=== PATIENT | male | born 1935 | race Two or more races ===

== ENCOUNTER 2018-01-28 11:29 | Inpatient (IN) | payer MEDICARE, MEDICAID ==
[2018-01-28] MEDS ORDERED: Sodium Chloride 0.9% 1,000 ML IV STA (12:05)
--- NOTE | 2018-01-28 12:38 | ED PDOC ---
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 Patient reports he is currently seeing a surgeon at [facility] and has not seen oncology in approximately 1 year. Patient had a CT at [facility] on 11/26 which showed extensive metastasis to the liver and pulmonary nodules. Patient presents today with worsening abdominal pain, diarrhea, loss of appetite , and nausea. Patient reports taking Oxycodone at home with minimal relief. He states he last saw his surgeon earlier this month. Patient was planned for a diverting colostomy, however the patient reports deciding to avoid surgery given it was not curative. Patent recently had a pacemaker and cardiac stents placed at [facility]. PMD: Dr. Márquez Past Medical History Reviewed: Historical Data, Nursing Documentation, Vital Signs Vital Signs: Last Vital Signs Temp 97.8 F 01/28/18 11:31 Pulse 92 H 01/28/18 11:31 Resp 19 01/28/18 11:31 BP 103/64 01/28/18 11:31 Pulse Ox 96 01/28/18 12:46 - Medical History Other PMH: Rectal cancer (mets to liver, abdomen, lungs) - Surgical History Surgical History: Pacemaker - Family History Family History: States: Unknown Family Hx - Social History Current smoker - smoking cessation education provided: No Alcohol: None Drugs: Denies - Allergies Allergies/Adverse Reactions: Allergies Allergy/AdvReac Type Severity Reaction Status Date / Time tramadol AdvReac DIZZINESS Verified 01/28/18 12:06 Review of Systems ROS Statement: Except As Marked, All Systems Reviewed And Found Negative Constitutional: Positive for: Weakness, Weight loss Gastrointestinal: Positive for: Nausea, Vomiting, Abdominal Pain, Diarrhea Neurological: Positive for: Dizziness Physical Exam - Reviewed Nursing Documentation Reviewed: Yes Vital Signs Reviewed: Yes - Physical Exam Appears: Positive for: No Acute Distress (chronically ill appearing, malnourished) Head Exam: Positive for: ATRAUMATIC, NORMAL INSPECTION, NORMOCEPHALIC Skin: Positive for: Normal Color, Warm, Dry Eye Exam: Positive for: EOMI, Normal appearance, PERRL ENT: Positive for: Normal ENT Inspection Neck: Positive for: Normal, Painless ROM, Supple Cardiovascular/Chest: Positive for: Other (pacemaker in left chest wall) Respiratory: Positive for: Normal Breath Sounds. Negative for: Respiratory Distress Gastrointestinal/Abdominal: Positive for: Tenderness (diffuse), Distended ( slight) Back: Positive for: Normal Inspection. Negative for: L CVA Tenderness, R CVA Tenderness, Vertebral Tenderness Extremity: Positive for: Normal ROM Neurologic/Psych: Positive for: Alert, Oriented - Laboratory Results Result Diagrams: 01/28/18 12:30 01/28/18 12:30 - ECG O2 Sat by Pulse Oximetry: 96 (RA) Pulse Ox Interpretation: Normal Medical Decision Making Medical Decision Making: Plan: -Workup for abdominal progression of disease/perforation/obstruction/other -Will give pain medicine, IV fluids, and order CT abdomen pelvis. labs reveal dehydration, normal Hgb CT revealed no obstruction, +metastatic disease D/w PMD Dr Márquez rec admission may benefit from AFIA Further pain medicine ordered IVF continued Dr Spence hospitalist admitting for Dr Yulisa Grimmibld Attestation: Documented by Esa Whittington, acting as a scribe for Brian Cuellar III, DO. Provider Scribe Attestation: All medical record entries made by the Scribe were at my direction and personally dictated by me. I have reviewed the chart and agree that the record accurately reflects my personal performance of the history, physical exam, medical decision making, and the department course for this patient. I have also personally directed, reviewed, and agree with the discharge instructions and disposition. Disposition - Clinical Impression Clinical Impression: Abdominal pain, Metastatic disease - Patient ED Disposition Is Patient to be Admitted: Yes - Disposition Disposition Time: 14:30 Condition: FAIR - Pt Status Changed To: Hospital Disposition Of: Inpatient - Admit Certification Admit to Inpatient:: After my assessment, the patient will require hospitalization for at least two midnights. This is because of the severity of symptoms shown, intensity of services needed, and/or the medical risk in this patient being treated as an outpatient. - POA Present On Arrival: None
[2018-01-28 12:52] LABS: BASO % 0.4 % (0.0-2.0); EOS # 0.1 K/uL (0.0-0.7); HEMOGLOBIN 12.3 g/dL (12.0-18.0); LYMPH # 0.3 K/uL (1.0-4.3); LYMPH % 2.5 % (20.0-40.0); MEAN CELL VOLUME 91.9 fl (80.0-94.0); MEAN CORPUSCULAR HEMOGLOBIN 30.5 pg (27.0-31.0); MEAN CORPUSCULAR HGB CONC 33.2 g/dL (33.0-37.0); MEAN PLATELET VOLUME 7.5 fl (7.2-11.7); MONO # 0.7 K/uL (0.0-0.8); MONO % 6.1 % (0.0-10.0); NEUT # 9.8 K/uL (1.8-7.0); NRBC % 0.1 % (0.0-0.0); PLATELET COUNT 314 K/uL (130-400); RBC 4.04 Mil/uL (4.40-5.90); RED CELL DISTRIBUTION WIDTH 15.9 % (11.5-14.5); WHITE BLOOD COUNT 10.9 K/uL (4.8-10.8)
[2018-01-28 13:02] LABS: INR 1.1 (0.9-1.2); PROTHROMBIN TIME 12.7 Seconds (9.8-13.1)
[2018-01-28 13:03] LABS: PARTIAL THROMBOPLASTIN TIME 29.1 Seconds (25.6-37.1)
--- NOTE | 2018-01-28 13:16 | RAD ---
HISTORY: SOB COMPARISON: No prior. FINDINGS: LUNGS: Prominence of the bilateral interstitial markings, likely chronic, with peripheral fibrotic changes. PLEURA: Elevation of the right hemidiaphragm. No significant pleural effusion identified, no pneumothorax apparent. CARDIOVASCULAR: Left subclavian access dual lead pacemaker. Atherosclerotic aortic calcifications. Cardiomediastinal silhouette enlarged. OSSEOUS STRUCTURES: Questionable right lateral 5th rib fracture. Degenerative changes. VISUALIZED UPPER ABDOMEN: Normal. OTHER FINDINGS: None. IMPRESSION: Prominence of the bilateral interstitial markings, likely chronic, with peripheral fibrotic changes. Superimposed consolidation would be difficult to exclude. Questionable right lateral 5th rib fracture.
[2018-01-28 13:25] LABS: ANISOCYTOSIS SLIGHT; BANDS 1 % (0-2); EOSINOPHIL 1 % (0-7); LYMPHOCYTE 6 % (20-50); MONOCYTE 5 % (0-10); NEUTROPHIL 87 % (42-75); PLATELET ESTIMATE NORMAL (NORMAL); TOTAL CELLS COUNTED 100
[2018-01-28 13:26] LABS: OVALOCYTES SLIGHT; SCHISTOCYTES SLIGHT; TOXIC GRANULATION PRESENT
[2018-01-28 13:31] LABS: BLOOD UREA NITROGEN 30 mg/dl (9-20); CALCIUM 8.7 mg/dL (8.4-10.2); GFR AFRICAN-AMERICAN > 60; GFR NON-AFRICAN AMERICAN > 60
[2018-01-28 13:32] LABS: ALBUMIN 3.7 g/dL (3.5-5.0); ALT/SGPT 66 U/L (21-72); AST/SGOT 143 U/L (17-59); LIPASE 64 U/L (23-300)
[2018-01-28] MEDS ORDERED: Iohexol 300 100 ML IJ ONE (14:33)
[2018-01-28] MEDS ORDERED: Sodium Chloride 0.9% 50 ML IV ONE (14:33)
--- NOTE | 2018-01-28 16:32 | CT ---
PROCEDURE: CT Abdomen and Pelvis with contrast HISTORY: hx rectal cancer w mets now worse abd pain COMPARISON: None. TECHNIQUE: Contrast dose: 90 mL Omnipaque 300 Radiation dose: Total exam DLP = 593.4 MGy-cm. This CT exam was performed using one or more of the following dose reduction techniques: Automated exposure control, adjustment of the mA and/or kV according to patient size, and/or use of iterative reconstruction technique. FINDINGS: LOWER THORAX: Bibasilar atelectasis/ scarring with peripheral fibrotic changes. Anterior right upper lobe 1 cm nodule (series 3, image 3). Cardiomegaly. Partially imaged implanted cardiac device leads. LIVER: Multiple low-density hepatic masses, scattered hepatic lobe and occupying nearly the entire left hepatic lobe. No gross lesion or ductal dilatation. GALLBLADDER AND BILE DUCTS: Unremarkable. PANCREAS: Unremarkable. No gross lesion or ductal dilatation. SPLEEN: Unremarkable. ADRENALS: Unremarkable. No mass. KIDNEYS AND URETERS: Unremarkable. No hydronephrosis. No solid mass. VASCULATURE: Unremarkable. No aortic aneurysm. BOWEL: Irregular long segment thickening of the rectum. Extensive amount retained colonic stool. No obstruction. No gross mural thickening. APPENDIX: Normal appendix. PERITONEUM: Hazy change within the mesentery and omentum. Trace perihepatic and perisplenic ascites. No free air. LYMPH NODES: Unremarkable. No enlarged lymph nodes. BLADDER: Unremarkable. REPRODUCTIVE: Unremarkable. BONES: Age-indeterminate compression deformities of T12 and L5. OTHER FINDINGS: None. IMPRESSION: No acute abdominal pelvic pathology. Long segment irregular rectal wall thickening. Innumerable low-density hepatic metastases, occupying nearly the entire left hepatic lobe and scattered throughout much of the right hepatic lobe. 1.1 cm right lower lobe nodule. Age-indeterminate compression deformities of T12 and L5.
[2018-01-28] MEDS ORDERED: Albuterol HFA 90 mcg/actuation (8 g) IH PRN (18:29)
--- NOTE | 2018-01-28 18:35 | CP.PCM.HP ---
History of Present Illness - History of Present Illness History of Present Illness: CC: Abdominal pain This is an 82 yo male with pmh of rectal carcinoma with metastatic disease to abdomen, liver, and lung, who presented to the ED today c/o generalized severe abdominal pain. He was recently evaluated by a surgeon at [facility] for possible tumor removal, however he was not cleared by the score caller as he reportedly had EF of 10%. He recently had cardiac stent placement as well as a pacemaker, however he was still not cleared. Patient had a CT at [facility] on 01/12/18 which showed extensive metastasis to the liver and pulmonary nodules. Today the patient presented to the ED with worsening abdominal pain, diarrhea, loss of appetite, and nausea. CT scan here shows a long segment irregular rectal wall thickening, also with low-density hepatic metastases, occupying nearly the entire left hepatic lobe and scattered throughout much of the right hepatic lobe. The patient is being admitted for pain management. After discussion about code status, the patient wishes to be DNR/DNI and is open to hospice care. Patient denies chest pain, shortness of breath, headache. All of the patient's and/or family's questions were answered at the bedside. Present on Admission - Present on Admission Any Indicators Present on Admission: No Review of Systems - Review of Systems Review of Systems: A 12 point review of systems was conducted and found to be negative other than what was mentioned in the HPI. Past Patient History - Infectious Disease Hx of Infectious Diseases: None - Past Medical History & Family History Past Medical History?: Yes Past Family History: Reviewed and not pertinent - Past Social History Alcohol: None Drugs: Denies Home Situation {Lives}: With Family - CARDIAC Hx Cardiac Disorders: Yes Hx Congestive Heart Failure: Yes Hx Hypercholesterolemia: Yes Hx Pacemaker: Yes - HEMATOLOGICAL/ONCOLOGICAL Hx Cancer: Yes (prostate and rectal) - GENITOURINARY/GYNECOLOGICAL Hx Prostate Cancer: Yes - PSYCHIATRIC Hx Substance Use: No - ANESTHESIA Hx Anesthesia: Yes Meds Allergies/Adverse Reactions: Allergies Allergy/AdvReac Type Severity Reaction Status Date / Time tramadol AdvReac DIZZINESS Verified 01/28/18 12:06 Physical Exam - Additional Findings Additional findings: Physical exam: Constitutional- cooperative, awake, alert, cachectic male in no apparent distress Head- NCAT, PERRL Eye- PERRL, EOMI ENT- normal exam, MMM. Neck- normal inspection, supple, no JVD Respiratory- CTAB, scattered rhonchi, no rales Cardiovascular- RRR, +S1, +S2 no MRG GI/Abdominal- normal bowel sounds, soft, no mass, no hsm Skin- warm, dry Extremities Exam- normal capillary refill, normal inspection Neurological Exam- alert, awake, oriented Psych- normal mood, normal affect Results - Vital Signs Recent Vital Signs: Last Vital Signs Temp 97.8 F 01/28/18 11:31 Pulse 92 H 01/28/18 11:31 Resp 19 01/28/18 11:31 BP 103/64 01/28/18 11:31 Pulse Ox 96 01/28/18 18:20 - Labs Result Diagrams: 01/28/18 12:30 01/28/18 12:30 Labs: Laboratory Results - last 24 hr 01/28/18 01/28/18 01/28/18 12:25 12:30 12:30 WBC 10.9 H RBC 4.04 L Hgb 12.3 Hct 37.1 MCV 91.9 MCH 30.5 MCHC 33.2 RDW 15.9 H Plt Count 314 MPV 7.5 Neut % (Auto) 90.0 H Lymph % (Auto) 2.5 L [place] % (Auto) 6.1 Eos % (Auto) 1.0 Baso % (Auto) 0.4 Neut # (Auto) 9.8 H Lymph # (Auto) 0.3 L [place] # (Auto) 0.7 Eos # (Auto) 0.1 Baso # (Auto) 0.0 Neutrophils % (Manual) 87 H Band Neutrophils % 1 Lymphocytes % (Manual) 6 L Monocytes % (Manual) 5 Eosinophils % (Manual) 1 Toxic Granulation Present Platelet Estimate Normal Anisocytosis (manual) Slight Ovalocytes Slight Schistocytes Slight PT INR APTT Sodium 131 L Potassium 4.8 Chloride 95 L Carbon Dioxide 28 Anion Gap 13 BUN 30 H Creatinine 1.1 Est GFR ( Amer) > 60 Est GFR (Non-Af Amer) > 60 POC Glucose (mg/dL) 127 H Random Glucose 125 H Calcium 8.7 Total Bilirubin 1.1 AST 143 H ALT 66 Alkaline Phosphatase 239 H Total Protein 7.4 Albumin 3.7 Globulin 4.0 H Albumin/Globulin Ratio 1.0 Lipase 64 01/28/18 12:30 WBC RBC Hgb Hct MCV MCH MCHC RDW Plt Count MPV Neut % (Auto) Lymph % (Auto) [place] % (Auto) Eos % (Auto) Baso % (Auto) Neut # (Auto) Lymph # (Auto) [place] # (Auto) Eos # (Auto) Baso # (Auto) Neutrophils % (Manual) Band Neutrophils % Lymphocytes % (Manual) Monocytes % (Manual) Eosinophils % (Manual) Toxic Granulation Platelet Estimate Anisocytosis (manual) Ovalocytes Schistocytes PT 12.7 INR 1.1 APTT 29.1 Sodium Potassium Chloride Carbon Dioxide Anion Gap BUN Creatinine Est GFR ( Amer) Est GFR (Non-Af Amer) POC Glucose (mg/dL) Random Glucose Calcium Total Bilirubin AST ALT Alkaline Phosphatase Total Protein Albumin Globulin Albumin/Globulin Ratio Lipase Assessment & Plan - Assessment and Plan (Free Text) Plan: ASSESSMENT/PLAN This is an 82 yo male with pmh of rectal carcinoma with metastatic disease to abdomen, liver, and lung, who presented to the ED today c/o generalized severe abdominal pain. He was recently evaluated by a surgeon at [facility] for possible tumor removal, however he was not cleared by the score caller as he reportedly had EF of 10%. He recently had cardiac stent placement as well as a pacemaker, however he was still not cleared. Patient had a CT at [facility] on 01/12/18 which showed extensive metastasis to the liver and pulmonary nodules. Today the patient presented to the ED with worsening abdominal pain, diarrhea, loss of appetite, and nausea. CT scan here shows a long segment irregular rectal wall thickening, also with low-density hepatic metastases, occupying nearly the entire left hepatic lobe and scattered throughout much of the right hepatic lobe. The patient is being admitted for pain management. After discussion about code status, the patient wishes to be DNR/DNI and is open to hospice care. 1) Rectal cancer with mets to abdomen, liver, and lung, with large tumor burden and acute abdominal pain - Admit to med/surg - Morphine sliding scale for pain - Case management consultation regarding dispo/hospice planning as patient would likely qualify. - HD stable for med/surg - Made DNR/DNI as per patients wish - Patient is Jehovah witness and refuses any blood products to be transfused. 2) Failue to thrive due to metastatic disease - IV NS at 200 cc/hour for rehydration - regular diet - dietary consultation 3) Hypothyroidism - Continue Synthroid 4) Systolic chronic CHF with EF 10% as per history - Continue Aldactone 5) DVT prophylaxis - Heparin SQ
[2018-01-28] MEDS ORDERED: Oxycodone/Acetaminophen 5/325 mg Tab PO PRN (18:36)
[2018-01-28] MEDS ORDERED: Sodium Chloride 0.9% 1,000 ML IV SCH ×2 (18:45→19:00)
[2018-01-28] MEDS: oxyCODONE 10 mg ER Tab (oxyCONTIN) PO SCH (21:23)
[2018-01-29 06:37] LABS: HEMOGLOBIN 11.1 g/dL (12.0-18.0); MEAN CELL VOLUME 92.4 fl (80.0-94.0); MEAN CORPUSCULAR HEMOGLOBIN 30.8 pg (27.0-31.0); MEAN CORPUSCULAR HGB CONC 33.4 g/dL (33.0-37.0); RBC 3.59 Mil/uL (4.40-5.90); RED CELL DISTRIBUTION WIDTH 15.9 % (11.5-14.5); WHITE BLOOD COUNT 8.9 K/uL (4.8-10.8)
[2018-01-29 07:04] LABS: BLOOD UREA NITROGEN 26 mg/dl (9-20); CALCIUM 8.3 mg/dL (8.4-10.2); GFR AFRICAN-AMERICAN > 60; GFR NON-AFRICAN AMERICAN > 60
--- NOTE | 2018-01-29 08:17 | CARD ---
APPROVED REPORT EKG Measurement Heart [id number] <Conclusion> Atrial-sensed ventricular-paced rhythm Abnormal ECG
[2018-01-29] MEDS ORDERED: Patient's Own Med (Umeclidinium Brm/Vilanterol Tr [Anoro Ellipta 62.5-25 Mcg Inh] 1 PUFF) IH SCH (09:00)
[2018-01-29] MEDS ORDERED: Sod Polystyrene Sulf 15 gm/60 ml Susp PO ONE ×3 (09:41→18:00)
[2018-01-29] MEDS: Cholecalciferol 1,000 INTLU TAB PO SCH (10:13)
[2018-01-29] MEDS: oxyCODONE 10 mg ER Tab (oxyCONTIN) PO SCH (10:19)
[2018-01-29] MEDS: Levothyroxine 25 MCG TAB PO SCH (10:30)
--- NOTE | 2018-01-29 11:31 | CP.PCM.PN ---
Subjective - Date & Time of Evaluation Date of Evaluation: 01/29/18 Time of Evaluation: 11:00 - Subjective Subjective: Patient was seen and examined at bedside. He reports continued abdominal pain but it is somewhat improved with the adjusted pain regimen. Having good BM and eating and drinking some. No other new complaints. For hospice evaluation today. Objective - Vital Signs/Intake and Output Vital Signs (last 24 hours): Temp Pulse Resp BP Pulse Ox 979.4 F H 68 20 90/61 L 98 01/29/18 08:11 01/29/18 08:11 01/29/18 08:11 01/29/18 08:11 01/29/18 08:11 - Medications Medications: Current Medications Albuterol (Ventolin Hfa 90 Mcg/Actuation (8 G)) 2 puff IH Q6 PRN PRN Reason: Shortness of Breath Cholecalciferol (Vitamin D) 1,000 intlu PO DAILY [facility] Last Admin: 01/29/18 10:13 Dose: 1,000 intlu Cyanocobalamin (Vitamin B12 1000 Mcg Tab) 1,000 mcg PO DAILY [facility] Last Admin: 01/29/18 10:13 Dose: 1,000 mcg Docusate Sodium (Colace) 100 mg PO BID [facility] Last Admin: 01/29/18 10:08 Dose: 100 mg Fentanyl (Duragesic) 1 patch TD Q3D [facility]IDNEY PRN Reason: Protocol Last Admin: 01/28/18 19:30 Dose: 1 patch Heparin Sodium (Porcine) (Heparin) 5,000 units SC Q8 SIDNEY PRN Reason: Protocol Last Admin: 01/29/18 10:08 Dose: 5,000 units Home Med (Umeclidinium Brm/Vilanterol Tr [Anoro Ellipta 62.5-25 Mcg Inh]) 1 puff IH DAILY [facility] Sodium Chloride (Sodium Chloride 0.9%) 1,000 mls @ 70 mls/hr IV .[id number] [facility] Stop: 01/29/18 18:45 Last Admin: 01/29/18 10:10 Dose: Not Given Levothyroxine Sodium (Synthroid) 37.5 mcg PO DAILY [facility] Last Admin: 01/29/18 10:30 Dose: 37.5 mcg Morphine Sulfate (Morphine) 4 mg IVP Q4 PRN PRN Reason: Pain, severe (8-10) Ondansetron HCl (Zofran Inj) 4 mg IVP Q6 PRN PRN Reason: Nausea/Vomiting Oxycodone HCl (Oxycontin Extended Release Tab) 10 mg PO Q12 [facility] Stop: 01/31/18 21:01 Last Admin: 01/29/18 10:19 Dose: 10 mg Oxycodone/Acetaminophen (Percocet 5/325 Mg Tab) 1 tab PO Q4 PRN PRN Reason: Pain, moderate (4-7) Stop: 01/31/18 18:37 Last Admin: 01/29/18 01:54 Dose: 1 tab Tamsulosin HCl (Flomax) 0.4 mg PO HS [facility] Last Admin: 01/28/18 21:27 Dose: 0.4 mg Zinc Sulfate (Zinc Sulfate 220 Mg Cap) 220 mg PO DAILY [facility] Last Admin: 01/29/18 10:13 Dose: 220 mg - Labs Labs: 01/29/18 06:20 01/29/18 06:20 PT 12.7 Seconds (9.8-13.1) 01/28/18 12:30 INR 1.1 (0.9-1.2) 01/28/18 12:30 APTT 29.1 Seconds (25.6-37.1) 01/28/18 12:30 - Additional Findings Additional findings: Physical exam: Constitutional- [place] speaking male, cooperative, awake, alert, cachectic male in no apparent distress Head- NCAT, PERRL Eye- PERRL, EOMI ENT- normal exam, MMM. Neck- normal inspection, supple, no JVD Respiratory- CTAB, scattered rhonchi, no rales Cardiovascular- RRR, +S1, +S2 no MRG GI/Abdominal- Generalized abdominal tenderness. normal bowel sounds, soft, no mass, no hsm Skin- warm, dry Extremities Exam- normal capillary refill, normal inspection Neurological Exam- alert, awake, oriented Psych- normal mood, normal affect Assessment and Plan - Assessment and Plan (Free Text) Plan: ASSESSMENT/PLAN This is an 82 yo male with pmh of rectal carcinoma with metastatic disease to abdomen, liver, and lung, who presented to the ED today c/o generalized severe abdominal pain. He was recently evaluated by a surgeon at [facility] for possible tumor removal, however he was not cleared by the tennis coach as he reportedly had EF of 10%. He recently had cardiac stent placement as well as a pacemaker, however he was still not cleared. Patient had a CT at [facility] on 01/12/18 which showed extensive metastasis to the liver and pulmonary nodules. Today the patient presented to the ED with worsening abdominal pain, diarrhea, loss of appetite, and nausea. CT scan here shows a long segment irregular rectal wall thickening, also with low-density hepatic metastases, occupying nearly the entire left hepatic lobe and scattered throughout much of the right hepatic lobe. The patient is being admitted for pain management. After discussion about code status, the patient wishes to be DNR/DNI and is open to hospice care. 1) Rectal cancer with mets to abdomen, liver, and lung, with large tumor burden and acute abdominal pain - Admit to med/surg - Fentanyl patch - Oxycontin 10 mg po q 12 hours - Percocet 1 tab q 4 hours PRN for additional pain control - Hospice evaluation today - HD stable for med/surg - Made DNR/DNI as per patients wish - Patient is Jehovah witness and refuses any blood products to be transfused. 2) Failue to thrive due to metastatic disease - NS reduced to 70 cc/hour for continued hydration - regular diet- tolerating well - dietary consultation 3) Hypothyroidism - Continue Synthroid 4) Systolic chronic CHF with EF 10% as per history - chronic - monitor 5) Hypokalemia - Kayexelate given - Hold Spironolactone for now, can restart when potassium reduced 6) DVT prophylaxis - Heparin SQ
[2018-01-29] MEDS ORDERED: oxyCODONE 10 mg ER Tab (oxyCONTIN) PO SCH (17:00)
[2018-01-29] MEDS: Oxycodone/Acetaminophen 5/325 mg Tab PO PRN (19:52)
[2018-01-30 07:01] LABS: HEMOGLOBIN 11.6 g/dL (12.0-18.0); MEAN CELL VOLUME 92.4 fl (80.0-94.0); MEAN CORPUSCULAR HGB CONC 33.6 g/dL (33.0-37.0); RBC 3.74 Mil/uL (4.40-5.90); WHITE BLOOD COUNT 10.6 K/uL (4.8-10.8)
[2018-01-30 07:04] LABS: BLOOD UREA NITROGEN 23 mg/dl (9-20); CALCIUM 8.1 mg/dL (8.4-10.2); GFR AFRICAN-AMERICAN > 60; GFR NON-AFRICAN AMERICAN > 60
[2018-01-30] MEDS: Oxycodone/Acetaminophen 5/325 mg Tab PO PRN (09:50)
[2018-01-30] MEDS: Levothyroxine 25 MCG TAB PO SCH (09:51)
[2018-01-30] MEDS: Cholecalciferol 1,000 INTLU TAB PO SCH (09:52)
--- NOTE | 2018-01-30 11:16 | CP.PCM.PN ---
Subjective - Date & Time of Evaluation Date of Evaluation: 01/30/18 Time of Evaluation: 11:00 - Subjective Subjective: Patient was seen and examined at bedside today. Reports feeling much better with the adjusted pain regimen. at bedside. For PT eval today and likely discharge to [facility] tomorrow. Objective - Vital Signs/Intake and Output Vital Signs (last 24 hours): Temp Pulse Resp BP Pulse Ox 98.1 F 96 H 18 123/67 92 L 01/30/18 07:48 01/30/18 07:48 01/30/18 07:48 01/30/18 07:48 01/30/18 07:48 - Medications Medications: Current Medications Albuterol (Ventolin Hfa 90 Mcg/Actuation (8 G)) 2 puff IH Q6 PRN PRN Reason: Shortness of Breath Cholecalciferol (Vitamin D) 1,000 intlu PO DAILY [facility] Last Admin: 01/30/18 09:52 Dose: 1,000 intlu Cyanocobalamin (Vitamin B12 1000 Mcg Tab) 1,000 mcg PO DAILY [facility] Last Admin: 01/30/18 09:52 Dose: 1,000 mcg Docusate Sodium (Colace) 100 mg PO BID [facility] Last Admin: 01/30/18 09:50 Dose: 100 mg Fentanyl (Duragesic) 1 patch TD Q3D [facility] PRN Reason: Protocol Last Admin: 01/28/18 19:30 Dose: 1 patch Heparin Sodium (Porcine) (Heparin) 5,000 units SC Q8 [facility] PRN Reason: Protocol Last Admin: 01/30/18 09:50 Dose: 5,000 units Home Med (Umeclidinium Brm/Vilanterol Tr [Anoro Ellipta 62.5-25 Mcg Inh]) 1 puff IH DAILY [facility] Levothyroxine Sodium (Synthroid) 37.5 mcg PO DAILY [facility] Last Admin: 01/30/18 09:51 Dose: 37.5 mcg Morphine Sulfate (Morphine) 4 mg IVP Q4 PRN PRN Reason: Pain, severe (8-10) Ondansetron HCl (Zofran Inj) 4 mg IVP Q6 PRN PRN Reason: Nausea/Vomiting Last Admin: 01/29/18 12:12 Dose: 4 mg Oxycodone/Acetaminophen (Percocet 5/325 Mg Tab) 1 tab PO Q4 PRN PRN Reason: Pain, moderate (4-7) Stop: 02/01/18 17:29 Last Admin: 01/30/18 09:50 Dose: 1 tab Tamsulosin HCl (Flomax) 0.4 mg PO HS [facility] Last Admin: 01/29/18 22:00 Dose: 0.4 mg Zinc Sulfate (Zinc Sulfate 220 Mg Cap) 220 mg PO DAILY [facility] Last Admin: 01/30/18 09:52 Dose: 220 mg - Labs Labs: 01/30/18 06:42 01/30/18 06:42 PT 12.7 Seconds (9.8-13.1) 01/28/18 12:30 INR 1.1 (0.9-1.2) 01/28/18 12:30 APTT 29.1 Seconds (25.6-37.1) 01/28/18 12:30 - Additional Findings Additional findings: Physical exam: Constitutional- Slovak speaking male, cooperative, awake, alert, cachectic male in no apparent distress Head- NCAT, PERRL Eye- PERRL, EOMI ENT- normal exam, MMM. Neck- normal inspection, supple, no JVD Respiratory- CTAB, scattered rhonchi, no rales Cardiovascular- RRR, +S1, +S2 no MRG GI/Abdominal- mild generalized abdominal tenderness, improved since yesterday. normal bowel sounds, soft, no mass, no hsm Skin- warm, dry Extremities Exam- normal capillary refill, normal inspection Neurological Exam- alert, awake, oriented Psych- normal mood, normal affect Assessment and Plan - Assessment and Plan (Free Text) Plan: ASSESSMENT/PLAN This is an 82 yo male with pmh of rectal carcinoma with metastatic disease to abdomen, liver, and lung, who presented to the ED today c/o generalized severe abdominal pain. He was recently evaluated by a surgeon at [facility] for possible tumor removal, however he was not cleared by the fit model as he reportedly had EF of 10%. He recently had cardiac stent placement as well as a pacemaker, however he was still not cleared. Patient had a CT at [facility] on 01/12/18 which showed extensive metastasis to the liver and pulmonary nodules. Today the patient presented to the ED with worsening abdominal pain, diarrhea, loss of appetite, and nausea. CT scan here shows a long segment irregular rectal wall thickening, also with low-density hepatic metastases, occupying nearly the entire left hepatic lobe and scattered throughout much of the right hepatic lobe. The patient is being admitted for pain management. After discussion about code status, the patient wishes to be DNR/DNI and is open to hospice care. 1) Rectal cancer with mets to abdomen, liver, and lung, with large tumor burden and acute abdominal pain - Admit to med/surg - Fentanyl patch - Oxycontin discontinued as he became too somnolent and found to be unnecessary. - Percocet 1 tab q 4 hours PRN for additional pain control - After long discussion, the patient does not want Hospice at this time but is amenable to [facility]. If he further declines, he states that he may want Hospice after his stay in rehab. - Made DNR/DNI as per patients wish - Patient is Jehovah witness and refuses any blood products to be transfused. 2) Failure to thrive due to metastatic disease - NS reduced to 70 cc/hour for continued hydration and repletion of sodium - regular diet- tolerating well - dietary consultation 3) Hypothyroidism - TSH 23.50, checkign T4, may need to increase Synthroid - Continue Synthroid 4) Systolic chronic CHF with EF 10% as per history - chronic - monitor 5) Hypokalemia- corrected - Kayexelate given - Restart Aldactone 6) DVT prophylaxis - Heparin SQ
[2018-01-31] MEDS: Oxycodone/Acetaminophen 5/325 mg Tab PO PRN (00:41)
[2018-01-31] MEDS ORDERED: Sodium Chloride 0.9% 1,000 ML IV SCH (01:00)
[2018-01-31] MEDS: Cholecalciferol 1,000 INTLU TAB PO SCH (08:42)
[2018-01-31 08:51] VITALS: BP 95/61; PULSE 84; RESP 18; TEMP 98.3; O2SAT 97
[2018-01-31] MEDS ORDERED: Levothyroxine 50 MCG TAB PO SCH (09:00)
--- NOTE | 2018-01-31 12:10 | CP.PCM.DIS ---
Provider - Provider Date of Admission: 01/28/18 17:05 Attending physician: Eulalio Spence DO Time Spent in preparation of Discharge (in minutes): 25 Diagnosis - Discharge Diagnosis (1) Rectal cancer Status: Acute Comment: metastatic to abdomen, liver and lungs. continue pain management. DNR /DNI (2) Hypothyroidism Status: Chronic Comment: continue Synthroid (3) CHF (congestive heart failure) Status: Chronic Comment: Chronic Systolic with EF of 10% Hospital Course - Lab Results Lab Results: Most Recent Lab Values WBC 10.6 K/uL (4.8-10.8) 01/30/18 06:42 RBC 3.74 Mil/uL (4.40-5.90) L 01/30/18 06:42 Hgb 11.6 g/dL (12.0-18.0) L 01/30/18 06:42 Hct 34.6 % (35.0-51.0) L 01/30/18 06:42 MCV 92.4 fl (80.0-94.0) 01/30/18 06:42 MCH 31.0 pg (27.0-31.0) 01/30/18 06:42 MCHC 33.6 g/dL (33.0-37.0) 01/30/18 06:42 RDW 16.0 % (11.5-14.5) H 01/30/18 06:42 Plt Count 291 K/uL (130-400) 01/30/18 06:42 MPV 7.5 fl (7.2-11.7) 01/28/18 12:30 Neut % (Auto) 90.0 % (50.0-75.0) H 01/28/18 12:30 Lymph % (Auto) 2.5 % (20.0-40.0) L 01/28/18 12:30 [place] % (Auto) 6.1 % (0.0-10.0) 01/28/18 12:30 Eos % (Auto) 1.0 % (0.0-4.0) 01/28/18 12:30 Baso % (Auto) 0.4 % (0.0-2.0) 01/28/18 12:30 Neut # (Auto) 9.8 K/uL (1.8-7.0) H 01/28/18 12:30 Lymph # (Auto) 0.3 K/uL (1.0-4.3) L 01/28/18 12:30 [place] # (Auto) 0.7 K/uL (0.0-0.8) 01/28/18 12:30 Eos # (Auto) 0.1 K/uL (0.0-0.7) 01/28/18 12:30 Baso # (Auto) 0.0 K/uL (0.0-0.2) 01/28/18 12:30 Neutrophils % (Manual) 87 % (42-75) H 01/28/18 12:30 Band Neutrophils % 1 % (0-2) 01/28/18 12:30 Lymphocytes % (Manual) 6 % (20-50) L 01/28/18 12:30 Monocytes % (Manual) 5 % (0-10) 01/28/18 12:30 Eosinophils % (Manual) 1 % (0-7) 01/28/18 12:30 Toxic Granulation Present 01/28/18 12:30 Platelet Estimate Normal (NORMAL) 01/28/18 12:30 Anisocytosis (manual) Slight 01/28/18 12:30 Ovalocytes Slight 01/28/18 12:30 Schistocytes Slight 01/28/18 12:30 PT 12.7 Seconds (9.8-13.1) 01/28/18 12:30 INR 1.1 (0.9-1.2) 01/28/18 12:30 APTT 29.1 Seconds (25.6-37.1) 01/28/18 12:30 Sodium 129 mmol/l (132-148) L 01/30/18 06:42 Potassium 4.6 MMOL/L (3.6-5.0) 01/30/18 06:42 Chloride 93 mmol/L (98-107) L 01/30/18 06:42 Carbon Dioxide 32 mmol/L (22-30) H 01/30/18 06:42 Anion Gap 9 (10-20) L 01/30/18 06:42 BUN 23 mg/dl (9-20) H 01/30/18 06:42 Creatinine 0.9 mg/dl (0.8-1.5) 01/30/18 06:42 Est GFR ( Amer) > 60 01/30/18 06:42 Est GFR (Non-Af Amer) > 60 01/30/18 06:42 POC Glucose (mg/dL) 127 mg/dL (65-110) H 01/28/18 12:25 Random Glucose 97 mg/dL (75-110) 01/30/18 06:42 Calcium 8.1 mg/dL (8.4-10.2) L 01/30/18 06:42 Total Bilirubin 1.1 mg/dl (0.2-1.3) 01/28/18 12:30 AST 143 U/L (17-59) H 01/28/18 12:30 ALT 66 U/L (21-72) 01/28/18 12:30 Alkaline Phosphatase 239 U/L (38-126) H 01/28/18 12:30 Total Protein 7.4 G/DL (6.3-8.2) 01/28/18 12:30 Albumin 3.7 g/dL (3.5-5.0) 01/28/18 12:30 Globulin 4.0 gm/dL (2.2-3.9) H 01/28/18 12:30 Albumin/Globulin Ratio 1.0 (1.0-2.1) 01/28/18 12:30 Lipase 64 U/L (23-300) 01/28/18 12:30 TSH 3rd Generation 23.50 mIU/ML (0.46-4.68) H 01/29/18 06:20 - Hospital Course Hospital Course: 82 yo male with history of metastatic rectal cancer to abdomen, liver and lung was admitted for pain management because of worsening generalized abdominal pain. He was put on DNR/DNI code status as per patient's request. Patient is for transfer to [facility] [place] today. Discharge Exam - Head Exam Head Exam: ATRAUMATIC, NORMAL INSPECTION, NORMOCEPHALIC - Eye Exam Eye Exam: absent: Scleral icterus - ENT Exam ENT Exam: Mucous Membranes Moist - Respiratory Exam Respiratory Exam: absent: Rales, Rhonchi, Wheezes, Respiratory Distress - Cardiovascular Exam Cardiovascular Exam: REGULAR RHYTHM, +S1, +S2 - GI/Abdominal Exam GI & Abdominal Exam: Soft. absent: Tenderness - Rectal Exam Rectal Exam: Deferred - Back Exam Back exam: absent: tenderness - Neurological Exam Neurological exam: Alert, Oriented x3 - Psychiatric Exam Psychiatric exam: Normal Affect - Skin Skin Exam: Dry, Intact Discharge Plan - Discharge Medications Prescriptions: oxyCODONE [oxyCODONE Immediate Release Tab] 5 mg PO Q4 PRN #30 tab PRN Reason: Pain, Moderate (4-7) - Follow Up Plan Condition: STABLE Disposition: REHAB FACILITY/REHAB UNIT Instructions: Acute Abdominal Pain (DC), Acute Abdominal Pain (GEN) Additional Instructions: d/c pt to [facility]
== END 2018-01-31 13:36 | DRG 948 ==
LOC: H.ER 11:29 → H.ERHOLD 17:05 → H.MEDSURG1 18:55
PROVIDERS: ADMIT Internal Medicine; ATTEND Internal Medicine
DX: G89.3 Neoplasm related pain (acute) (chronic) (principal); C20 Malignant neoplasm of rectum; C78.7 Secondary malignant neoplasm of liver and intrahepatic bile duct; C78.02 Secondary malignant neoplasm of left lung; C79.89 Secondary malignant neoplasm of other specified sites; E87.1 Hypo-osmolality and hyponatremia; I50.22 Chronic systolic (congestive) heart failure; Z88.6 Allergy status to analgesic agent; R62.7 Adult failure to thrive; E86.0 Dehydration; Z95.0 Presence of cardiac pacemaker; Z95.5 Presence of coronary angioplasty implant and graft; E87.5 Hyperkalemia; E03.9 Hypothyroidism, unspecified